=== PATIENT | male | born 1980 | race Caucasian/White ===

== ENCOUNTER 2018-10-14 09:46 | Emergency (ER) | payer OTHER ==
[~2018-10-14] VITALS: Ht 167.6 cm; Wt 103.5 kg
[~2018-10-14 09:46] MED LIST: ACET-8386 PO
[2018-10-14 09:56] VITALS: BP 160/100
[2018-10-14] MEDS ORDERED: KETOROLAC 60 MG/2 ML VIAL IM ONE (11:00)
[2018-10-14 11:30] VITALS: BP 131/88
== END 2018-10-14 11:30 | disposition home or self-care (01) ==
LOC: MED 09:46
DX: R07.89 Other chest pain (principal); R11.2 Nausea with vomiting, unspecified; I10 Essential (primary) hypertension; E11.9 Type 2 diabetes mellitus without complications; Z90.49 Acquired absence of other specified parts of digestive tract
CPT/HCPCS: 82948; 96372; 99283; J1885